=== PATIENT | male | born 1970 | race American Indian/Alaskan Native ===

== ENCOUNTER 2016-08-05 17:29 | Emergency (ER) | payer SELFPAY ==
[2016-08-05 17:49] VITALS: BP 126/93
--- NOTE | 2016-08-05 18:03 | Emergency Department Report ---
Chief Complaint: Chest Pain Stated Complaint: CHEST PAIN Time Seen by Provider: 08/05/16 18:00 - HPI History of Present Illness: 45 y/o male complain of chest pain started today .pt state that he was having back pain on yesterday .pt state took aleve with mild relief .denies any injury - ROS Review of Systems: per HPI - Exam Vital Signs: Vital Signs 08/05/16 17:44 Temperature 97.7 F Pulse Rate 69 Respiratory 18 Rate Blood Pressure 126/93 O2 Sat by Pulse 100 Oximetry Physical Exam: GENERAL: The patient is well-developed and well-nourished. Patient is in NAD. HENT: Normocephalic. Atraumatic. Patient has moist mucous membranes. Throat: No erythema, swelling or exudates. Ears:Tympanic membranes pearly almaraz ,intact , and free of exudate and erythema . EYES: Extraocular motions are intact, PERRL NECK: Supple. No meningitic signs are noted. There is no adenopathy noted. CHEST/LUNGS: Clear to auscultation bilaterally. No wheezing, rales or rhonchi noted. There is no respiratory distress noted. HEART/CARDIOVASCULAR: Regular rate and rhythm. Normal S1 S2. No murmurs, rubs , clicks, or gallops. ABDOMEN: Abdomen is soft, nontender.. Bowel sounds normoactive. There is no abdominal distention. Negative rebound tenderness. : Deferred. SKIN: There is no rash. There is no edema. There is no diaphoresis.Normal skin turgor NEURO: The patient is A&Ox3. The patient has no focal neurologic deficits. MUSCULOSKELETAL: There is no tenderness or deformity. There is no limitation range of motion. posture erect.Spine aligned,no deformities. PSYCH: Pt has appropriate mood and affect. MSE screening note: Focused history and physical exam performed. Due to findings the following was ordered: ED Disposition for MSE Condition: Stable
[2016-08-05 18:40] LABS: Basophils % (Auto) 1.1 % (0.0-1.8); Eosinophils % (Auto) 2.1 % (0.0-4.3); Hematocrit 42.5 % (35.5-45.6); Hemoglobin 14.2 gm/dl (11.8-15.2); Mean Corpuscular HGB Conc 33 % (32-34); Mean Corpuscular Hemoglobin 31 pg (28-32); Mean Corpuscular Volume 92 fl (84-94); Platelet Count 198 K/mm3 (140-440); Red Blood Count 4.61 M/mm3 (3.65-5.03); Red Cell Distribution Width 13.5 % (13.2-15.2)
[2016-08-05 18:49] LABS: INR 0.95 (0.87-1.13)
[2016-08-05 18:50] LABS: Partial Thromboplastin Time 29.6 Sec. (24.2-36.6)
[2016-08-05 19:06] LABS: BUN/Creatinine Ratio 22.85; Blood Urea Nitrogen 16 mg/dL (9-20); Calcium 9.2 mg/dL (8.4-10.2); Carbon Dioxide 28 mmol/L (22-30); Creatine Kinase 106 units/L (55-170); Creatine Kinase MB 1.1 ng/mL (0.0-4.0); Glucose 88 mg/dL (75-100); Potassium 4.5 mmol/L (3.6-5.0); Sodium 139 mmol/L (137-145)
[2016-08-05 19:12] LABS: Anion Gap 16 mmol/L
--- NOTE | 2016-08-06 18:45 | ED Elopement Review ---
ED Pt Elopement review - Results review Lab results: Laboratory Tests 08/05/16 08/05/16 08/05/16 18:15 18:15 18:15 WBC 4.0 L RBC 4.61 Hgb 14.2 Hct 42.5 MCV 92 MCH 31 MCHC 33 RDW 13.5 Plt Count 198 Lymph % (Auto) 37.0 H Garrett % (Auto) 13.7 H Eos % (Auto) 2.1 Baso % (Auto) 1.1 Lymph # 1.5 Garrett # 0.5 Eos # 0.1 Baso # 0.0 Seg Neutrophils % 46.1 Seg Neutrophils # 1.8 PT 12.6 INR 0.95 APTT 29.6 Sodium 139 Potassium 4.5 Chloride 100.0 Carbon Dioxide 28 Anion Gap 16 BUN 16 Creatinine 0.7 L Estimated GFR > 60 BUN/Creatinine Ratio 22.85 Glucose 88 Calcium 9.2 Total Creatine Kinase 106 CK-MB (CK-2) 1.1 CK-MB (CK-2) Rel Index 1.0 Troponin T < 0.010 - Call Back decision Pt Call Back Decision: Call pt to return to ED [facility] (chest pain will likely require inpatient evaluation)
== END 2016-08-05 21:20 | disposition left against medical advice (07) ==
LOC: ED 17:29
DX: R07.9 Chest pain, unspecified (principal); Z53.21 Procedure and treatment not carried out due to patient leaving prior to being seen by health care provider
CPT/HCPCS: 36415; 80048; 82550; 82553; 84484; 85025; 85610; 85730; 93005; 93010